=== PATIENT | female | born 1970 | race Caucasian/White ===

== ENCOUNTER 2021-02-23 15:57 | Emergency (ER) | payer OTHER ==
[~2021-02-23] VITALS: Ht 167.6 cm; Wt 108.0 kg
--- NOTE | 2021-02-23 15:57 | NUR ---
BIBA TO BED 11
[2021-02-23 16:13] VITALS: BP 105/63
--- NOTE | 2021-02-23 16:14 | NUR ---
DR. LE AT PT BEDSIDE FOR FURTHER EVALUATION.
--- NOTE | 2021-02-23 16:18 | NUR ---
51 Y/O FEMALE BIBA FROM HOME C/O PALPITATIONS [id number] AGO. PT STATES SHE HAS SOME SOB, TOOK PERCOCET AT 1500 WITH NO RELIEF. DENIES FEVER/CHILLS, STATES +N/-V, DENIES TRAUMA/INJURY, DENIES CP. PMH: AFIB, BREAST CA ON RIGHT SIODE, CRUSHED NECK VERTEBRAE, GASTRIC TUMOR, MIGRAINES, HTN, HLD, HYPOTHYROIDISM, RA, AND RIGHT SIDE LYMPHOIDECTOMY. ALLERGIES: KELFEX, SULFA, AND ZOFRAN
--- NOTE | 2021-02-23 16:21 | NUR ---
Candice ramirez in [facility] - 02/23/21 at 1632 by [employer] PROGRAM SPECIALIST AT BEDSIDE FOR FURTHER EVALUATION.
--- NOTE | 2021-02-23 16:21 | NUR ---
EDGING CATCHER AT PT BEDSIDE.
--- NOTE | 2021-02-23 16:33 | NUR ---
PT STATES +N, EMESIS BAG PROVIDED, MADE AWARE.
[2021-02-23 16:41] LABS: BASOPHILS # (AUTO) 0.1 K/uL (0.00-0.22); BASOPHILS % (AUTO) 0.9 % (0.0-2.0); EOSINOPHILS # (AUTO) 0.2 K/uL (0-0.4); EOSINOPHILS % (AUTO) 2.2 % (0.0-4.0); HEMOGLOBIN 10.5 g/dL (12.0-16.0); LYMPHOCYTES # (AUTO) 3.2 K/uL (2.5-16.5); MEAN CORPUSCULAR HEMOGLOBIN 26 pg (27-31); MEAN CORPUSCULAR HGB CONC 33 g/dL (33-37); MEAN CORPUSCULAR VOLUME 78.6 fL (80-94); MONOCYTES # (AUTO) 0.8 K/uL (0.8-1.0); MONOCYTES % (AUTO) 9.3 % (1.7-9.3); NEUTROPHILS # (AUTO) 4.4 K/uL (1.8-7.7); NEUTROPHILS % (AUTO) 50.6 % (42.2-75.2); PLATELET COUNT (AUTO) 283 K/uL (140-450); RED BLOOD CELL COUNT(AUTO) 4.08 MIL/uL (4.20-5.40); RED CELL DISTRIBUTION WIDTH 17.6 % (11.6-13.7); WHITE BLOOD COUNT (AUTO) 8.7 K/uL (4.8-10.8)
[2021-02-23 16:55] LABS: ALBUMIN 3.6 g/dL (3.4-5.0); ANION GAP 13.4 (8-16); CARBON DIOXIDE 25.1 mmol/L (21-32); CREATININE 0.8 mg/dL (0.6-1.3); POTASSIUM 3.5 mmol/L (3.5-5.1); TOTAL BILIRUBIN 0.2 mg/dL (0.0-1.0)
[2021-02-23] MEDS ORDERED: METOCLOPRAMIDE 10 MG TAB PO ONE (16:55)
--- NOTE | 2021-02-23 17:19 | NUR ---
PT RESTING ON RIGHT SIDE, EASILY AROUSABLE, VSS, WILL CONTINUE TO MONITOR.
[2021-02-23 17:32] LABS: APPEARANCE,URINE CLEAR (CLEAR); BILIRUBIN,URINE NEGATIVE (NEGATIVE); BLOOD, URINE NEGATIVE (NEGATIVE); COLOR,URINE YELLOW (YELLOW); LEUKOCYTE ESTERASE ,URINE NEGATIVE (NEGATIVE); NITRITE, URINE NEGATIVE (NEGATIVE); UGLUCOSE NEGATIVE (NEGATIVE)
[2021-02-23 17:47] LABS: FREE T4 (FREE THYROXINE) 0.86 ng/dL (0.76-1.46); THYROID STIMULATING HORMONE 4.05 uIU/mL (0.34-3.74)
--- NOTE | 2021-02-23 18:00 | NUR ---
PT RESTING IN BED, HOB LOWERED FOR COMFORT, VSS, WILL CONTINUE TO MONITOR.
[2021-02-23 18:31] VITALS: BP 112/70
--- NOTE | 2021-02-23 18:31 | NUR ---
Patient discharged with v/s stable. Written and verbal after care instructions given and explained. Patient verbalized understanding. Ambulatory with steady gait. All questions addressed prior to discharge. Advised to follow up with PMD.
== END 2021-02-23 18:31 | disposition home or self-care (01) ==
LOC: MED 15:57
DX: R00.2 Palpitations (principal)
CPT/HCPCS: 36415; 71045; 80053; 84439; 84443; 84484; 85025; 93005; 99285; J8597; Q0092

== ENCOUNTER 2021-06-29 09:01 | Emergency (ER) | payer OTHER ==
[~2021-06-29] VITALS: Ht 167.6 cm; Wt 108.9 kg
[2021-06-29 09:04] VITALS: BP 104/51
--- NOTE | 2021-06-29 09:15 | NUR ---
BIB SELF C/IO RIGHT LEG PAIN X YESTERDAY AND C/O MID CHEST PAIN , LOWER BACK PAIN X TODAY. PMH: HEART PROBLEM, BREAST CANCER X 3 TIMES, HYSTERECTOMY
[2021-06-29 10:28] LABS: BASOPHILS # (AUTO) 0.1 K/uL (0.00-0.22); BASOPHILS % (AUTO) 1.1 % (0.0-2.0); EOSINOPHILS # (AUTO) 0.3 K/uL (0-0.4); EOSINOPHILS % (AUTO) 3.5 % (0.0-4.0); HEMATOCRIT 35.7 % (36-48); HEMOGLOBIN 11.8 g/dL (12.0-16.0); LYMPHOCYTES % (AUTO) 25.2 % (20.5-51.1); MEAN CORPUSCULAR HEMOGLOBIN 27 pg (27-31); MEAN CORPUSCULAR HGB CONC 33 g/dL (33-37); MEAN CORPUSCULAR VOLUME 81.6 fL (80-94); MONOCYTES # (AUTO) 0.6 K/uL (0.8-1.0); MONOCYTES % (AUTO) 7.2 % (1.7-9.3); NEUTROPHILS # (AUTO) 4.9 K/uL (1.8-7.7); PLATELET COUNT (AUTO) 335 K/uL (140-450); RED BLOOD CELL COUNT(AUTO) 4.38 MIL/uL (4.20-5.40); RED CELL DISTRIBUTION WIDTH 16.2 % (11.6-13.7); WHITE BLOOD COUNT (AUTO) 7.8 K/uL (4.8-10.8)
[2021-06-29 11:30] LABS: ALBUMIN 3.7 g/dL (3.4-5.0); ANION GAP 16.6 (8-16); CARBON DIOXIDE 27.2 mmol/L (21-32); CREATININE 0.9 mg/dL (0.6-1.3); POTASSIUM 4.8 mmol/L (3.5-5.1); TOTAL BILIRUBIN 0.3 mg/dL (0.0-1.0)
[2021-06-29 11:31] LABS: APPEARANCE,URINE CLEAR (CLEAR); BILIRUBIN,URINE NEGATIVE (NEGATIVE); BLOOD, URINE NEGATIVE (NEGATIVE); COLOR,URINE YELLOW (YELLOW); LEUKOCYTE ESTERASE ,URINE NEGATIVE (NEGATIVE); NITRITE, URINE NEGATIVE (NEGATIVE); UGLUCOSE NEGATIVE (NEGATIVE)
[2021-06-29 12:17] VITALS: BP 120/74
== END 2021-06-29 12:17 | disposition home or self-care (01) ==
LOC: MED 09:01
DX: M79.604 Pain in right leg (principal); R07.89 Other chest pain; Z88.2 Allergy status to sulfonamides; Z88.1 Allergy status to other antibiotic agents
CPT/HCPCS: 36415; 71045; 80053; 81003; 84484; 85025; 93005; 93971; 99285; Q0092

== ENCOUNTER 2021-10-11 11:21 | Emergency (ER) | payer OTHER ==
[~2021-10-11] VITALS: Ht 167.6 cm; Wt 114.8 kg
[2021-10-11 11:27] VITALS: BP 118/74
[2021-10-11] MEDS ORDERED: KETOROLAC 30 MG/ML VIAL IM ONE (12:40)
[2021-10-11 14:00] VITALS: BP 118/74
[2021-10-17] MEDS ORDERED: SIMV-31 PO (01:10)
[2021-10-17] MEDS ORDERED: LISI5TAB18 PO (01:10)
[2021-10-17] MEDS ORDERED: TIZA4CAP PO (01:10)
[2021-10-17] MEDS ORDERED: METO-485 PO (01:10)
[2021-10-17] MEDS ORDERED: METO25TA PO (01:10)
[2021-10-17] MEDS ORDERED: DOCU250S85 PO (01:10)
[2021-10-17] MEDS ORDERED: PANT20EC PO (01:10)
[2021-10-17] MEDS ORDERED: SYN.05 PO (01:10)
[2021-10-17] MEDS ORDERED: ASPI-1822 PO (01:10)
[2021-10-17] MEDS ORDERED: CETI10TA81 PO (01:10)
[2021-10-17] MEDS ORDERED: ACET-5636 PO (01:10)
[2021-10-17] MEDS ORDERED: DIPH50CA69 PO (01:10)
== END 2021-10-11 14:00 | disposition home or self-care (01) ==
LOC: MED 11:21
DX: M77.9 Enthesopathy, unspecified (principal); M25.512 Pain in left shoulder; E03.9 Hypothyroidism, unspecified; I10 Essential (primary) hypertension; I48.91 Unspecified atrial fibrillation; Z88.0 Allergy status to penicillin; Z88.2 Allergy status to sulfonamides; Z88.1 Allergy status to other antibiotic agents; Z91.09 Other allergy status, other than to drugs and biological substances; Z85.3 Personal history of malignant neoplasm of breast
CPT/HCPCS: 73010; 73030; 81002; 81025; 96372; 99284; J1885

== ENCOUNTER 2022-06-09 14:20 | Emergency (ER) | payer OTHER ==
[~2022-06-09] VITALS: Ht 167.6 cm; Wt 104.3 kg
[~2022-06-09 14:20] MED LIST: ACET-5636 PO; ASPI-1822 PO; CETI10TA81 PO; DIPH50CA69 PO; DOCU250S85 PO; LISI5TAB18 PO; METO-485 PO; METO25TA PO; PANT20EC PO; SIMV-31 PO; SYN.05 PO; TIZA4CAP PO
[2022-06-09 14:28] VITALS: BP 144/80
--- NOTE | 2022-06-09 14:32 | NUR ---
PT BEING EVALUATED BY DR. YAO IN TRIAGE. PT STATED "I NEED TO BE AT A AT 3 O'CLOCK, IF MY EKG SHOWS SINUS THEN I WILL LEAVE."
[2022-06-09 14:40] VITALS: BP 144/80
--- NOTE | 2022-06-09 14:40 | NUR ---
Patient does not wish to proceed with medical care recommended by Dr. Agosto. Patient given information related to possible complications, up to and including , which could occur as a result of leaving hospital at this time. Patient verbalizes understanding of risks involved leaving against medical advice. Patient has signed AMA form.
== END 2022-06-09 14:40 | disposition left against medical advice (07) ==
LOC: MED 14:20
DX: R00.2 Palpitations (principal); R07.89 Other chest pain; R06.02 Shortness of breath; I48.91 Unspecified atrial fibrillation; I10 Essential (primary) hypertension; Z85.3 Personal history of malignant neoplasm of breast; Z79.899 Other long term (current) drug therapy
CPT/HCPCS: 93005; 99283

== ENCOUNTER 2023-08-13 16:28 | Emergency (ER) | payer OTHER ==
[~2023-08-13] VITALS: Ht 167.6 cm; Wt 104.3 kg
[2023-08-13 16:58] VITALS: BP 123/63; PULSE 61; RESP 18; TEMP 96.8; O2SAT 98
[2023-08-13] MEDS ORDERED: ONDA-188 PO (18:29)
[2023-08-13] MEDS: HYDROcodone/APAP 5/325 MG 1 TAB TAB PO ONE (18:35)
[2023-08-13] MEDS: ONDANSETRON 4 MG ODT PO ONE (18:36)
== END 2023-08-13 18:50 | disposition home or self-care (01) ==
LOC: MED 16:28
DX: S52.612A Displaced fracture of left ulna styloid process, initial encounter for closed fracture (principal); I11.9 Hypertensive heart disease without heart failure; Z79.899 Other long term (current) drug therapy; W20.8XXA Other cause of strike by thrown, projected or falling object, initial encounter; Y93.89 Activity, other specified; Y92.89 Other specified places as the place of occurrence of the external cause; Y99.8 Other external cause status
CPT/HCPCS: 29125; 73110; 99283; Q0162

== ENCOUNTER 2023-08-17 10:43 | Emergency (ER) | payer OTHER ==
[~2023-08-17] VITALS: Ht 167.6 cm; Wt 104.3 kg
[~2023-08-17 10:43] MED LIST changes: +ONDA-188 PO
[2023-08-17 10:54] VITALS: BP 122/77; PULSE 69; RESP 19; TEMP 97.8; O2SAT 100
[2023-08-17] MEDS: MORPHINE SULFATE 4 MG/ML SYR IM ONE (12:10)
[2023-08-17] MEDS ORDERED: ONDA8TAB87 PO (12:27)
[2023-08-17] MEDS ORDERED: CHLO-1090 PO (12:27)
[2023-08-17] MEDS ORDERED: AZIT250T4 PO (12:27)
[2023-08-17 12:47] VITALS: BP 102/46; PULSE 66; RESP 11; TEMP 97; O2SAT 96
== END 2023-08-17 12:47 | disposition home or self-care (01) ==
LOC: MED 10:43
DX: M25.532 Pain in left wrist (principal); J32.9 Chronic sinusitis, unspecified; I11.9 Hypertensive heart disease without heart failure; Z88.2 Allergy status to sulfonamides; Z88.0 Allergy status to penicillin; Z88.8 Allergy status to other drugs, medicaments and biological substances; Z79.899 Other long term (current) drug therapy; Z90.710 Acquired absence of both cervix and uterus
CPT/HCPCS: 29125; 96372; 99283; J2270